=== PATIENT | male | born 1960 | race Caucasian/White ===

== ENCOUNTER → 2021-08-14 | Outpatient (CLI) | payer OTHER ==
[~2021-08-14] MED LIST: ALLOPURINOL 10100 M3 PO; AMLODIPINE-VAL1 EAC2 PO; ASA81BEC PO; BENICAR20 MG PO; CIALIS20 MG PO; COREG6.25 MG PO; DEMADEX20 MG PO; GLUCOTROL XL2.5 MG PO; IRON325 PO; JARDIANCE10 MG PO; KLOR-CON M2020 MEQ PO; LANTUS SUBQ; METFORMIN HCL500 M3 PO; OMEPRAZOLE 20 M20 M1 PO; PROAIR HFA8.5 GM INH; PROSCAR 5MG TABL5 M1 PO; PROTONIX40 M2 PO; SPIRONOLACTONE25 M1 PO; TRULICITY1.5 MG/0.5 SUBQ; ZOCOR 20 MG TAB20 M1 PO; ZYRTEC10 M4 PO
== END ==
LOC: CAT 16:21
PROVIDERS: ATTEND Internal Medicine Cardiovascular Disease
DX: Z13.6 Encounter for screening for cardiovascular disorders (principal); I25.10 Atherosclerotic heart disease of native coronary artery without angina pectoris; E78.00 Pure hypercholesterolemia, unspecified

== ENCOUNTER 2021-08-15 09:07 | Inpatient (IN) | payer BC ==
[~2021-08-15] VITALS: Ht 172.7 cm; Wt 105.9 kg
[2021-08-15 09:46] VITALS: BP 147/72
[2021-08-15] MEDS ORDERED: PROAIR HFA8.5 GM INH (10:12)
[2021-08-15] MEDS ORDERED: ALLOPURINOL 10100 M3 PO (10:18)
[2021-08-15] MEDS ORDERED: AMLODIPINE-VAL1 EAC2 PO (10:19)
[2021-08-15] MEDS ORDERED: ASA81BEC PO (10:19)
[2021-08-15] MEDS ORDERED: ZYRTEC10 M4 PO (10:20)
[2021-08-15] MEDS ORDERED: TRULICITY1.5 MG/0.5 SUBQ (10:20)
[2021-08-15] MEDS ORDERED: PROSCAR 5MG TABL5 M1 PO (10:21)
[2021-08-15] MEDS ORDERED: LANTUS SUBQ ×2 (10:22→15:40)
[2021-08-15] MEDS ORDERED: GLUCOTROL XL2.5 MG PO (10:22)
[2021-08-15] MEDS ORDERED: METFORMIN HCL500 M3 PO ×2 (10:23→15:38)
[2021-08-15] MEDS ORDERED: ZOCOR 20 MG TAB20 M1 PO (10:23)
[2021-08-15] MEDS ORDERED: CIALIS20 MG PO (10:24)
[2021-08-15] MEDS ORDERED: PROTONIX40 M2 PO (10:25)
[2021-08-15 10:27] LABS: HEMOGLOBIN 12.1 gm/dL (14.0-18.0); MCH 21.2 pg (26.0-34.0); MCHC 30.9 g/dL (28.0-37.0); MCV 68.6 fL (80.0-100.0); RBC 5.68 mil/uL (4.50-6.00); RDW 18.3 % (10.5-14.5); WBC 9.8 thou/uL (4.0-11.0)
[2021-08-15] MEDS ORDERED: IRON325 PO (10:27)
[2021-08-15] MEDS ORDERED: OMEPRAZOLE 20 M20 M1 PO (10:27)
[2021-08-15 10:36] LABS: CALCIUM 8.8 mg/dL (8.5-10.1); POTASSIUM 3.4 mmol/L (3.5-5.1)
--- NOTE | 2021-08-15 13:30 | CATHLAB ---
[facility] Katia [employer] [place] [address] INVASIVE PROCEDURE REPORT Name: YANELY PACHECO Room #: REG LUIS ANGEL PeresMavisDeliaMavis#: [id number] Admission: 08/15/21 Attend Phys: Donavan Dash MD, Discharge: Date of : 56 Report #: [id number] THIS REPORT FOR: cc: Alok Diaz MD, Eric K. MD Mancuso, Gerald M. MD 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 A PINNACLE 6FR Sheath #[id number] sheath was inserted into the RFA. Coronary angiography was performed using coronary diagnostic catheters. The right coronary system was accessed and visualized with a JR4 catheter. The left coronary system was accessed and visualized with a JL5 catheter. The left ventricle was accessed and visualized with a STRAIGHT PIGTAIL catheter. Left ventriculogram was performed in 30 degree projection. Closure device was deployed with a Fr MYNXGRIP 6/7F #[id number]. The patient tolerated the procedure well and there were no complications associated with the procedure. There was no hematoma. Intraoperative Conscious Sedation Sedation start time: 11:34 Case end Time: 12:13 Fentanyl 75 mcg Versed 1.[address] [address] INVASIVE PROCEDURE REPORT Name: YANELY PACHECO Room #: [facility]#: [id number] Admission: 08/15/21 Attend Phys: Donavan Dash, Discharge: Date of : 56 Report #: [id number] Fluoro Time: 3.90 minutes Dose: DAP 75887.30 cGycm2 1201 mGy Contrast Type and Amount: Omnipaque 85 ml Hemodynamics The right atrial mean pressure is 14 mmHg. The right ventricular pressure is 89/8 mmHg. The pulmonary artery pressure is 78/22 mmHg with a mean of 43 mmHg. The mean pulmonary capillary wedge pressure is 44 mmHg. The aortic pressure is 147/73 mmHg with a mean of 98 mmHg. The left ventricular pressure is 147/14 mmHg with a mean of mmHg. The left ventricular end diastolic pressure is 26 mmHg. The cardiac output using thermo method is 6.60 L/min. The cardiac index using thermo method is 3.04 L/min/m2. Conclusion #1 Mild to moderately dilated left ventricle moderate global hypokinesis EF 25 to 30% range. #2 left main widely patent giving rise to LAD and circumflex. #3 LAD extends to the apex with mild irregularity. #4 there is a large first OM or ramus branch which is widely patent small nondominant circumflex widely patent. #5 normal right coronary artery anatomically dominant no occlusive disease. #6 successful right heart catheterization with cardiac output by thermodilution. See above hemodynamics. Markedly elevated pulmonary pressure and pulmonary capillary wedge pressure. <ELECTRONICALLY SIGNED> By: Donavan Dash MD, FACC 08/15/21 1329 28 28 Donavan Dash MD, FACC /INF
[2021-08-15 20:00] VITALS: BP 144/64
[2021-08-16 04:00] VITALS: BP 136/70
--- NOTE | 2021-08-16 05:44 | NUR ---
Pt. rested quietly at intervals during the night when checked on during frequent rounds. He offers no c/o pain or discomfort. Right groin dressing is dry and intact. Pt. has been up ad elke in his room.
[2021-08-16 06:46] LABS: HEMATOCRIT 37.3 % (42.0-52.0); MCH 21.7 pg (26.0-34.0); MCHC 32.1 g/dL (28.0-37.0); MCV 67.7 fL (80.0-100.0); RBC 5.51 mil/uL (4.50-6.00); RDW 18.7 % (10.5-14.5); WBC 9.2 thou/uL (4.0-11.0)
[2021-08-16 07:06] LABS: ALBUMIN 3.5 g/dL (3.4-5.0); POTASSIUM 3.4 mmol/L (3.5-5.1); TOTAL BILIRUBIN 0.8 mg/dL (0.2-1.0); TOTAL PROTEIN 6.9 g/dL (6.4-8.2)
[2021-08-16 08:03] VITALS: BP 167/76
--- NOTE | 2021-08-16 08:24 | EKG ---
[place] [address] [facility] [employer] [place] [address] ELECTROCARDIOGRAM REPORT Name: YANELY PACHECO Room #: 209-P ADM IN M.R.#: [id number] Admission: 08/15/21 Attend Phys: Donavan Dash MD, Discharge: Date of : 56 Report #: [id number] [facility] Test Date: 2021-08-16 Test Time: 07:21:11 Pat Name: YANELY PACHECO Department: Room: 209 P Gender: M Timing Adjuster: ROSI : 1960 Requested By: Nishi Arriaga Order Number: [id number] MD: Antonio Sexton Measurements Intervals [place] Rate: 83 P: 46 MT: 214 QRS: 20 QRSD: 103 T: 176 QT: 429 QTc: 505 Interpretive Statements Sinus rhythm Ventricular bigeminy Borderline prolonged MT interval Anteroseptal infarct, old Repol abnrm suggests ischemia, anterolateral Prolonged QT interval No previous ECG available for comparison Electronically Signed On 08-16-2021 8:23:56 [employer]ATCH [employer]IRS[employer]ING [employer]SEMBLER by Antonio Sexton [email or web address] <ELECTRONICALLY SIGNED> By: Antonio Sexton MD, [facility] 08/16/21 0823 0 0 Antonio Sexton MD, [facility] /EPI
[2021-08-16] MEDS ORDERED: KLOR-CON M2020 MEQ PO (09:53)
[2021-08-16] MEDS ORDERED: DEMADEX20 MG PO (09:53)
[2021-08-16] MEDS ORDERED: COREG6.25 MG PO (09:53)
[2021-08-16] MEDS ORDERED: JARDIANCE10 MG PO (09:53)
[2021-08-16] MEDS ORDERED: SPIRONOLACTONE25 M1 PO (09:53)
[2021-08-16] MEDS ORDERED: BENICAR20 MG PO (09:53)
[2021-08-16 12:06] VITALS: BP 139/73
--- NOTE | 2021-08-16 15:18 | NUR ---
NO FALLS OR INJURIES THIS SHIFT. ALL SAFETY MEASURES IN PLACE. VSS. PATIENT ABLE TO COMPLETE ADLs INDEPENDENDENTLY. UP AD JACOB IN ROOM. NO C/O PAIN. BEING DIURESED. PATIENT AGREES WITH POC. TOLERATES DIET, GOOD APPETITE. ACHS, NO INSULIN REQUIREMENTS AT THIS TIME. PATIENT WILL DC HOME TOMORROW.
[2021-08-16 16:01] VITALS: BP 134/68
[2021-08-16 20:37] VITALS: BP 138/81
--- NOTE | 2021-08-17 03:48 | NUR ---
Assumed pt care at 1900. Pt is alert and oriented. No sign of distress noted in place. Pt is laying in bed, restng comfortably. Pt is ambulatory. Denies any pain. Vital signs stable. Assessment completed and documented. Scheduled meds administered to pt. No acute event during the night. Continue to monitor. No further needs at this time.
[2021-08-17 04:00] VITALS: BP 118/62
[2021-08-17 05:10] LABS: ALBUMIN 3.6 g/dL (3.4-5.0); CALCIUM 8.7 mg/dL (8.5-10.1); POTASSIUM 3.5 mmol/L (3.5-5.1); TOTAL BILIRUBIN 0.6 mg/dL (0.2-1.0)
[2021-08-17 07:52] VITALS: BP 153/90
[2021-08-17 11:09] VITALS: BP 153/90
[2021-08-17 11:19] VITALS: BP 153/90
--- NOTE | 2021-08-17 11:47 | NUR ---
NO FALLS OR INJURIES THIS SHIFT. ALL SAFETY MEASURES IN PLACE. PATIENT ABLE TO COMPLETE ADLs INDEPENDENTLY. UP IN ROOM AD JACOB. PATIENT DISCHARGED HOME WITH SELF CARE. AMBULATED OUT WITH TO WAITING CAR. PATIENT PROGRESSED TOWARD POC.
== END 2021-08-17 11:49 | disposition home or self-care (01) | DRG 286 ==
LOC: CATH 09:07 → 2N 11:52
PROVIDERS: Nurse Practitioner Adult Health; ADMIT Internal Medicine Cardiovascular Disease; ATTEND Internal Medicine Cardiovascular Disease
PROC: B2111ZZ Fluoroscopy of Multiple Coronary Arteries using Low Osmolar Contrast (ICD-10-PCS; principal; 2021-08-15)
PROC: 4A023N7 Measurement of Cardiac Sampling and Pressure, Left Heart, Percutaneous Approach (ICD-10-PCS; principal; 2021-08-15)
PROC: B2151ZZ Fluoroscopy of Left Heart using Low Osmolar Contrast (ICD-10-PCS; principal; 2021-08-15)
DX: I11.0 Hypertensive heart disease with heart failure (principal); I50.33 Acute on chronic diastolic (congestive) heart failure; Z20.822 Contact with and (suspected) exposure to COVID-19; I42.9 Cardiomyopathy, unspecified; E78.5 Hyperlipidemia, unspecified; E11.9 Type 2 diabetes mellitus without complications; E78.00 Pure hypercholesterolemia, unspecified
CPT/HCPCS: 10081

== ENCOUNTER → 2021-08-15 | Outpatient (CLI) | payer BC | LOC: SJCVCIMAG 07:12 | PROVIDERS: ATTEND Internal Medicine Cardiovascular Disease | DX: I08.8 Other rheumatic multiple valve diseases (principal) ==

== ENCOUNTER → 2021-08-24 | Outpatient (CLI) | payer BC | LOC: SJCVCIMAG 10:40 | PROVIDERS: ATTEND Internal Medicine Cardiovascular Disease | DX: I35.8 Other nonrheumatic aortic valve disorders (principal); I11.0 Hypertensive heart disease with heart failure; I50.9 Heart failure, unspecified; E11.9 Type 2 diabetes mellitus without complications; I42.9 Cardiomyopathy, unspecified; K21.9 Gastro-esophageal reflux disease without esophagitis; E78.5 Hyperlipidemia, unspecified; R06.00 Dyspnea, unspecified; Z79.82 Long term (current) use of aspirin; Z79.84 Long term (current) use of oral hypoglycemic drugs; Z79.899 Other long term (current) drug therapy; Z72.89 Other problems related to lifestyle ==

== ENCOUNTER 2021-10-13 06:22 | Observation (INO) | payer BC ==
[~2021-10-13] VITALS: Ht 172.7 cm; Wt 95.7 kg
[2021-10-13] VITALS (12 sets, daily range): BP systolic 106–1130; BP diastolic 48–70
[2021-10-13 07:38] LABS: ABSOLUTE NEUTROPHILS 4.3 thou/uL (1.4-8.2); BASOPHILS 1.1 % (0.0-2.0); EOSINOPHILS 5.4 % (0.0-3.0); HEMATOCRIT 38.6 % (42.0-52.0); HEMOGLOBIN 12.6 gm/dL (14.0-18.0); LYMPHOCYTES 15.5 % (24.0-44.0); MCH 22.6 pg (26.0-34.0); MCHC 32.8 g/dL (28.0-37.0); MCV 68.9 fL (80.0-100.0); MONOCYTES 12.2 % (1.0-8.0); PLATELET COUNT 171 thou/uL (150-400); POLYS 65.8 % (36.0-66.0); RDW 23.1 % (10.5-14.5); WBC 6.5 thou/uL (4.0-11.0)
[2021-10-13] MEDS ORDERED: BYSTOLIC10 MG PO (07:44)
[2021-10-13] MEDS ORDERED: COENZYME Q10100 MG PO (07:46)
[2021-10-13] MEDS ORDERED: MULTI VITAMIN1 EACH PO (07:46)
[2021-10-13 07:58] LABS: APTT 27.3 Seconds (24.5-32.8); INR 1.05; PROTIME 11.4 Seconds (10.5-12.1)
[2021-10-13 08:04] LABS: CALCIUM 9.1 mg/dL (8.5-10.1); CREATININE 2.2 mg/dL (0.7-1.3); POTASSIUM 4.2 mmol/L (3.5-5.1)
[2021-10-13 08:10] LABS: ALBUMIN 3.8 g/dL (3.4-5.0); TOTAL BILIRUBIN 0.3 mg/dL (0.2-1.0); TOTAL PROTEIN 7.1 g/dL (6.4-8.2)
[2021-10-13 09:40] LABS: ANISOCYTOSIS 3+
[2021-10-13 09:41] LABS: HYPOCHROMASIA 2+; MICROCYTES 1+; OVALOCYTES 2+; POIKILOCYTOSIS 2+
--- NOTE | 2021-10-13 14:47 | NUR ---
PT ORIENTED TO ROOM AND UNIT, BED LOW AND LOCKED, SIDE RAILS UPX3, CALL LIGHT IN REACH, TELE APPLIED. WILL CONTINUE TO ASSESS.
[2021-10-14 04:45] VITALS: BP 115/59
--- NOTE | 2021-10-14 06:32 | NUR ---
ALERT AND ORIENTED, OFF BEDREST AT 1930, VSS, R.GROIN SITE INTACT, NO HEMATOMA, TYL GIVEN FOR HEADACHE, SR ON TELE, VSS, UP TO THE BATHROOM UPADBLIB, NO NEEDS AT THIS TIME, PLAN TO DC HOME TODAY, WILL PASS ON REPORT
[2021-10-14 07:51] LABS: HEMATOCRIT 32.8 % (42.0-52.0); HEMOGLOBIN 10.6 gm/dL (14.0-18.0); MCH 22.4 pg (26.0-34.0); MCHC 32.4 g/dL (28.0-37.0); MCV 69.1 fL (80.0-100.0); RBC 4.75 mil/uL (4.50-6.00); RDW 23.8 % (10.5-14.5); WBC 6.2 thou/uL (4.0-11.0)
[2021-10-14 07:55] VITALS: BP 135/63
[2021-10-14 07:59] LABS: CALCIUM 8.7 mg/dL (8.5-10.1); CREATININE 1.7 mg/dL (0.7-1.3); POTASSIUM 4.4 mmol/L (3.5-5.1)
[2021-10-14 10:45] VITALS: BP 135/63
--- NOTE | 2021-10-14 11:03 | NUR ---
PATIENT DISCHARGED HOME, NO QUESTIONS OR CONCERNS AT TIME OF DISCHARGE. IV AND TELE REMOVED. TAKEN OUT BY WHEELCHAIR TO WHO WAITS IN CAR
--- NOTE | 2021-10-16 10:57 | P ---
[facility] [place] [address] PROCEDURE REPORT Name: YANELY PACHECO Room #: 213-P [facility] Lei Morales#: [id number] Admission: 10/13/21 Attend Phys: Benjamin Allen MD Discharge: 10/14/21 Date of : 56 Report #: [id number] THIS REPORT FOR: cc: Alok Diaz MD, Eric K. MD Couchonnal, Luis F. MD ~ DATE OF SERVICE: 10/13/2021 VT ABLATION DATE OF PROCEDURE: 10/13/2021 PREOPERATIVE DIAGNOSES: 1. Symptomatic premature ventricular contractions. 2. Nonischemic cardiomyopathy. POSTOPERATIVE DIAGNOSES: 1. Symptomatic premature ventricular contractions. 2. Nonischemic cardiomyopathy. PROCEDURES PERFORMED: 1. VT ablation, CPT code 56681. 2. Program stimulation pacing after IV drug infusion, CPT code 39571. 3. Intracardiac echo, CPT code 98705. 4. Arterial line placement, CPT code 12026. 5. Left atrial pacing and recording, CPT code 74720. 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 He is here for PVC ablation. ANESTHESIA: The patient underwent MAC anesthesia with no anesthesia-related complications. DESCRIPTION OF PROCEDURE: The patient underwent informed consent. We discussed the details of the procedure including the risks, which include, but not limited to bleeding, infection, vascular damage, stroke, MA, cardiac perforation as well as damage to the nondalton conduction system requiring permanent pacemaker. The patient was brought to the EP laboratory in a fasting and sedated state and in the holding area, he was having frequent PVCs, but once he was on the table, he was having no further PVCs. So, before the procedure was started, I started him on isoproterenol 2 mcg per minute and he started having frequent PVCs that were right bundle-branch block, positive concordance, positive in II, III, aVF and negative in lead 1. As such, I obtained access to the right femoral artery x1 placing an 8-Beninese short sheath, which I sutured down. I obtained access to the right femoral vein x 3, placing a 9, 7 and 6-Beninese short sheath and I [facility] [address] [place] [address] PROCEDURE REPORT Name: YANELY PACHECO Room #: 213-P [facility] Lei Morales#: [id number] Admission: 10/13/21 Attend Phys: Benjamin Allen MD Discharge: 10/14/21 Date of : 56 Report #: [id number] placed a decapolar catheter into the coronary sinus for left atrial pacing and recording. I placed an ICE catheter into the right atrium and a quadripolar catheter into the right ventricle for RV pacing. Using intracardiac ultrasound, a 3D geometry of the left ventricle aorta and aortic valve was created. At baseline, the patient was in sinus rhythm with PVCs as described above. There was no evidence of pericardial effusion. The patient does have known mild aortic stenosis, valve area of about 1.4 cm. Looking, using intracardiac ultrasound, there appeared to be restrictive movement of the right coronary cusp, but the other cusps appeared to be moving normally. Next, the patient was systemically heparinized and a PentaRay catheter was taken retrograde into the left ventricle and a 3D geometry and activation map was created, and this showed that the PVC appeared to be earliest along the aorto-mitral continuity. Therefore, I decided to go up with the SmartTouch ThermoCool ablation catheter and I was not able to advance this into the left ventricle via the aorta. I tried prolapsing the ablation catheter using both the D and F curve unsuccessfully and then I attempted to advance directly with the catheter using intracardiac ultrasound to guide me, but this was not possible. Therefore, I decided remove this ablation catheter and try with a 4 mm ablation catheter, which is somewhat more flexible and using the D curve, this went easily into the left ventricle. We started mapping the earliest area along the aorto-mitral continuity and pace maps were good within this region. They were around 93-94%, compared to the clinical PVC. At this location, I did have a nice atrial and ventricular signal on my distal ablation catheter and did 2 or 3 initial ablation lesions, which actually made the PVC more frequent. I did some further mapping in this region and had a pace map that was around 95% and when there was a clinical PVC, I was 30 milliseconds earlier than the PVC. Ablation at this site was performed and I performed several ablation lesions at this site. After we performed ablation here, there were no further PVCs. We monitored for a period of 45 minutes and we had no more clinical PVCs and the patient had remained on isoproterenol throughout the ablation. As such, isoproterenol was turned off and we continued to monitor. There was no more clinical PVCs. Using intracardiac ultrasound, I verified there was no pericardial effusion. The patient received systemic protamine and once the ACT was within acceptable range, all catheters and sheaths were pulled and hemostasis obtained. The patient awoke neurologically and hemodynamically intact. No complications and no significant bleeding. CONCLUSION: Successful ablation of a left sided PVC located to the aorto-mitral continuity. <ELECTRONICALLY SIGNED> By: Benjamin Allen MD 10/16/21 1057 1205 1906 Benjamin Allen MD /karely
== END 2021-10-14 11:04 | disposition home or self-care (01) ==
LOC: CATH 06:22 → 2N 14:54
PROVIDERS: ADMIT Internal Medicine Cardiovascular Disease; ATTEND Internal Medicine Cardiovascular Disease
DX: I49.3 Ventricular premature depolarization (principal); I42.8 Other cardiomyopathies; I10 Essential (primary) hypertension; E78.5 Hyperlipidemia, unspecified; E11.9 Type 2 diabetes mellitus without complications; I25.10 Atherosclerotic heart disease of native coronary artery without angina pectoris; Z20.822 Contact with and (suspected) exposure to COVID-19; E66.01 Morbid (severe) obesity due to excess calories; Z68.35 Body mass index [BMI] 35.0-35.9, adult; Z79.01 Long term (current) use of anticoagulants; Z79.899 Other long term (current) drug therapy
CPT/HCPCS: 62110; 62900; 65040; 70005